=== PATIENT | male | born 1995 ===

== ENCOUNTER 2019-12-31 18:04 | Outpatient (REF) | payer SELFPAY ==
[2019-12-31 21:14] LABS: Abs Immature Grans 0.02 k/cumm (0.0-0.09); Absolute Basophil Count 0.02 k/cumm (0.0-0.2); Absolute Eosinophil Count 0.02 k/cumm (0.0-0.7); Absolute Lymphocyte Count 2.06 k/cumm (1.2-3.4); Absolute Monocyte Count 0.51 k/cumm (0.11-0.7); Absolute Neutrophil Count 4.16 k/cumm (1.2-6.7); Basophils % 0.3; Eosinophils % 0.3; HCT 41.4 % (40.0-50.0); Immature Grans % 0.3 %; Lymphocytes % 30.3; Mean Corp. HGB Concentration 33.8 g/dL (32.0-36.0); Mean Corpuscular Hemoglobin 32.4 pg (27.0-33.0); Mean Corpuscular Volume 95.8 fL (80-95); Monocytes % 7.5; Neutrophils % 61.3; Platelet Count 269 x1000/uL (130-400); RBC 4.32 m/cumm (4.50-6.00); White Blood Cell Count 6.79 k/cumm (4.4-10.8)
[2019-12-31 21:48] LABS: ALT 24 U/L (16-63); AST 16 U/L (15-37); Albumin 4.3 g/dL (3.4-5.0); Alkaline Phosphatase 82 U/L (46-116); Anion Gap 10.4 mmol/L (3-11); BUN 16 mg/dL (7-18); Bilirubin, Total 0.3 mg/dL (0.2-1.0); CO2 29.6 mmol/L (21.0-32.0); CREATININE 0.93 mg/dL (0.70-1.30); Calcium 9.1 mg/dL (8.5-10.1); Chloride 103 mmol/L (98-107); Glucose 88 mg/dL (74-106); Potassium 4.1 mmol/L (3.5-5.1); Sodium 143 mmol/L (136-145); Total Protein 7.3 g/dL (6.4-8.2)
[2019-12-31 21:57] LABS: Lipase 215 U/L (73-393)
== END 2019-12-31 18:24 ==
LOC: NCHCN 18:04
PROVIDERS: PCP Registered Nurse; Visit Provider Registered Nurse
DX: R63.4 Abnormal weight loss (principal); R10.11 Right upper quadrant pain
CPT/HCPCS: 80053; 83690; 85025